=== PATIENT | male | born 1990 | race African-American/Black ===

== ENCOUNTER 2019-07-26 11:19 | Emergency (ER) | payer OTHER ==
[~2019-07-26] VITALS: Ht 172.7 cm; Wt 68.0 kg
[2019-07-26 11:21] VITALS: BP 135/73
--- NOTE | 2019-07-26 11:21 | NUR ---
ED Nurse Note: Patient was brought in by law enforcement staff ([employer]). Per officer, patient was standing by the porch of the house, and started threatening 2 elder people that lives in the house so at that time they call and notify law enforcement. According to the police office, patient tied to use a hyperion administrator so they initiated a safety protocol. Patient was combative and very aggresive and has episodes of hitting police officers while theyre trying to hold him for safety. Law enforcers stay at bedside.
--- NOTE | 2019-07-26 11:34 | Emergency Room Report ---
History of Present Illness General Chief Complaint: Medical Clearance Source: Patient, EMS, Law Enforcement Present Illness HPI 28-year-old male presents with agitation, being uncooperative, patient was found running around a neighbor's yard, brought in by law enforcement history is limited secondary to patient refusing to answer question, when asked questions he says feel fine man and starts rapping. Allergies: Coded Allergies: UNABLE TO ASSESS (Unverified , 07/26/19) Patient History Limited by: medical condition - Refusing to answer questions Past Medical History: see triage record Reviewed Nursing Documentation: PMH: Agreed; PSxH: Agreed Nursing Documentation-PMH Past Medical History: Deferred Review of Systems All Other Systems: limited - Refusing to answer questions Physical Exam Vital Signs Date Time Temp Pulse Resp B/P (MAP) Pulse Ox O2 Delivery O2 Flow Rate FiO2 07/26/19 11:21 98.1 18 135/73 (93) 99 General Appearance: well appearing, no apparent distress Head: normocephalic, atraumatic ENT: hearing grossly normal, normal voice Neck: full range of motion, supple Respiratory: lungs clear, normal breath sounds, no rhonchi, no respiratory distress, speaking full sentences Cardiovascular #1: regular rate, rhythm, no edema, no gallop, no murmur Gastrointestinal: non tender, soft Neurologic: alert, oriented Psychiatric: anxious Skin: rash - Abrasion left shoulder Medical Decision Making Diagnostic Impression: Primary Impression: Medical clearance for incarceration Additional Impression: Abrasion ER Course 28-year-old male presents with agitation, refusing to answer questions, patient' s has no medical complaints TDAP + bacitracin for abrasions. Patient is medically cleared for incarceration. Last Vital Signs Date Time Temp Pulse Resp B/P (MAP) Pulse Ox O2 Delivery O2 Flow Rate FiO2 07/26/19 11:21 98.1 18 135/73 (93) 99 Disposition: HOME, SELF-CARE Condition: Stable Referrals: [facility] Rhiannon Orosco [facility] Departure Forms: [facility] Clearance Patient Instructions: Abrasion, [id number] Additional Instructions: The patient was provided with discharge instructions, notified to follow-up with a primary care doctor and or specialist in the next 24-48 hours, and to return to the ED if they have worsening of their symptoms. Please note that this report is being documented using [employer] technology. This can lead to erroneous entry secondary to incorrect interpretation by the dictating instrument. Ab Pedro MD Jul 26, 2019 11:34
[2019-07-26] MEDS ORDERED: Tetanus/Diptheria/Pertussis IM ONE (11:45)
[2019-07-26] MEDS ORDERED: DiphenhydrAMINE 50mg/ml Inj IM ONE (11:45)
[2019-07-26] MEDS ORDERED: Bacitracin Oint UD TOPIC ONE (11:45)
[2019-07-26] MEDS ORDERED: Haloperidol 5mg/ml Inj IM ONE (11:45)
[2019-07-26 12:41] VITALS: BP 122/70
--- NOTE | 2019-07-26 12:41 | NUR ---
ED Nurse Note: pt is more calm and cooperative wtih lapd after meds given. pt remains in lapd custody. lapd officers given dc aci and medical clearance instructions. pt ambulates steady gait out of ed, remaining in lapd care and custody.
--- NOTE | 2019-07-26 12:42 | NUR ---
ER DISCHARGE NOTE: Patient is cleared to be discharged per ERMD, pt is aox4, on room air, with stable vital signs. pt was given dc instructions, pt was able to verbalize understanding, pt id band removed. pt is able to ambulate with steady gait. pt took all belongings.
== END 2019-07-26 12:42 ==
LOC: EDBD 11:19 → EMR 11:57 → EDBD 11:57 → EMR 12:42
DX: S40.212A Abrasion of left shoulder, initial encounter (principal); R45.1 Restlessness and agitation; Z23 Encounter for immunization; Z59.0 Homelessness; X58.XXXA Exposure to other specified factors, initial encounter; Y92.9 Unspecified place or not applicable
CPT/HCPCS: 90471; 90715; 96372; 99283; J1200; J1630